=== PATIENT | female | born 1985 | race Caucasian/White ===

== ENCOUNTER 2023-08-29 09:33 | Emergency (ER) | payer MEDICAID ==
[~2023-08-29] VITALS: Ht 167.6 cm; Wt 75.0 kg
[2023-08-29 09:44] VITALS: O2SAT 98
[2023-08-29] MEDS ORDERED: KETOROLAC 60MG/2ML VIAL IM STA (09:49)
[2023-08-29] MEDS ORDERED: AMOXICILLIN/POTASSIUM CLAVULANATE 875/125MG TAB PO ONE (10:00)
[2023-08-29 10:21] LABS: ALANINE AMINOTRANSFERASE 11 IU/L (10-49); ALBUMIN 4.2 g/dL (3.2-4.8); ASPARTATE AMINOTRANSFERASE 13 IU/L (<34); BILIRUBIN TOTAL 0.3 mg/dL (0.1-1.0); CARBON DIOXIDE 25 mEq/L (21-32); CHLORIDE 107 mEq/L (98-107); CREATININE 0.6 mg/dL (0.6-1.0); GLUCOSE 114 mg/dL (70-105); PROTEIN TOTAL 7.6 g/dL (6.0-8.3); SODIUM 139 mEq/L (136-145); UREA NITROGEN BLOOD 8 mg/dL (9-23)
[2023-08-29 10:25] LABS: BASOPHILS % 0.4 % (0.0-2.0); EOSINOPHILS % 0.8 % (0.0-5.0); HEMATOCRIT. 42.1 % (36.0-48.0); HEMOGLOBIN. 13.5 g/dL (12.0-16.0); LYMPHOCYTES % 15.9 % (20.0-50.0); MEAN CORPUSCULAR HGB CONC 32.1 g/dL (31.0-37.0); MEAN CORPUSCULAR VOLUME 96.6 fL (81.0-99.0); MEAN PLATELET VOLUME 10.2 fl (7.4-10.4); MONOCYTES % 5.9 % (2.0-8.0); PLATELET 242 x1000/uL (130-400); RED BLOOD CELL COUNT 4.36 mill/uL (4.2-5.4); RED CELL DISTRIBUTION WIDTH 13.2 % (11.6-14.6); WHITE BLOOD COUNT 11.8 x1000/uL (4.5-11.0)
[2023-08-29] MEDS ORDERED: AMOXICILLIN/POTASSIUM CLAVULANATE 875/125MG TAB PO SCH (12:00)
[2023-08-29] MEDS ORDERED: KETOROLAC 30MG/ML VIAL IM SCH (12:00)
[2023-08-29] MEDS ORDERED: KETOROLAC 60MG/2ML VIAL IM SCH (12:00)
[2023-08-29] MEDS ORDERED: IOHEXOL-300 100 ML BOTTLE ONE (13:46)
[2023-08-29] MEDS ORDERED: AMOX1TAB16 MT (13:55)
[2023-08-29] MEDS ORDERED: IBUP-2028 MT (13:56)
[2023-08-29 14:28] VITALS: BP 135/82; PULSE 72; RESP 17; TEMP 98.5
== END 2023-08-29 14:30 | disposition home or self-care (01) ==
LOC: ER 09:48
DX: K04.7 Periapical abscess without sinus (principal); M54.2 Cervicalgia
CPT/HCPCS: 80053; 85025; 36415; 70487; 96372; 99285; Q9967; J1885 ×2; Z7610 ×3